=== PATIENT | male | born 1995 | race Caucasian/White ===

== ENCOUNTER 2020-09-10 12:01 | Emergency (ER) | payer OTHER ==
[~2020-09-10] VITALS: Ht 170.2 cm; Wt 56.0 kg
[2020-09-10 12:39] LABS: COVID AG,FIA SOURCE NASOPHARYNGEAL
[2020-09-10] MEDS ORDERED: MethylPREDNISolone SOD SUCC 125 MG/2 ML VIAL IM ONE (13:15)
[2020-09-10] MEDS ORDERED: IBUPROFEN 100 MG/5 ML SUSPENSION UDCUP PO ONE (13:15)
[2020-09-10 13:22] VITALS: BP 128/82
== END 2020-09-10 14:11 | disposition home or self-care (01) ==
LOC: EMS 12:05
DX: J03.90 Acute tonsillitis, unspecified (principal); Z20.828 Contact with and (suspected) exposure to other viral communicable diseases
CPT/HCPCS: 87426; 87430; 96372; 99283; J2930